=== PATIENT | female | born 1960 | race Caucasian/White ===

== ENCOUNTER 2023-08-03 21:57 | Inpatient (IN) | payer OTHER, SELFPAY ==
[2023-08-03] VITALS (16 sets, daily range): BP systolic 121–161; BP diastolic 67–99; BMI 27.5
[2023-08-03 18:46] LABS: % Basophils 0.4 % (0-2); % Eosinophils 1.7 % (0-6); % Immature Granulocytes 0.1 % (0-0.5); % Lymphocytes 27.1 % (20.5-51.1); % Monocytes 10.3 % (1.7-9.3); % Neutrophils 60.4 % (42.2-75.2); Absolute Eosinophils 0.1 10^3/uL (0-0.7); Absolute Lymphocytes 2.2 10^3/uL (1.2-3.4); Absolute Monocytes 0.8 10^3/uL (0.1-0.6); Absolute Neutrophils 4.9 10^3/uL (1.4-6.5); Hematocrit 40.5 % (37.0-47.0); Hemoglobin 14.5 g/dL (12.0-16.0); Mean Corp Hgb Conc. 35.8 g/dL (33.0-37.0); Mean Corpuscular Hgb 29.8 pg (27.0-31.0); Mean Corpuscular Volume 83.3 fL (81.0-99.0); Mean Platelet Volume 9.6 fL (7.4-10.4); Nucleated Red Blood Cells % 0 %; Platelet Count 361 10^3/uL (130-400); Red Blood Cell Count 4.86 10^6/uL (4.20-5.40); Red Cell Dist. Width 13.4 % (11.5-14.5); White Blood Cell Count 8.2 10^3/uL (4.8-10.8)
[2023-08-03 19:03] LABS: ALT (SGPT) 19 U/L (0-35); AST (SGOT) 25 U/L (14-36); Albumin 4.6 g/dl (3.5-5.0); Alkaline Phosphatase 107 U/L (38-126); Blood Urea Nitrogen 17 mg/dl (7-17); Calcium 10.5 mg/dl (8.4-10.2); Carbon Dioxide 18 mmol/L (22-30); Chloride 108 mmol/L (98-107); Estimated Creatinine Clearance 82 ml/min; Glucose 119 mg/dl (70-99); Sodium 137 mmol/L (135-145); Total Bilirubin 0.5 mg/dl (0.2-1.3); Total Protein 7.5 g/dl (6.3-8.2); eGFR > 60.00
--- NOTE | 2023-08-03 19:04 | ED.GENMED ---
History of Present Illness
General
Chief Complaint: Chest Pain
Time Seen by Provider: 08/03/23 18:56
Travel History
Have you had any contact with someone who has COVID-19?: No
Do you have any symptoms of coronavirus? Fever > 100 degrees, chills, cough, shortness of breath, sore throat, loss of taste or smell, muscle aches, or headache?: No
History of Present Illness
History of Present Illness:
HPI: 24 hours ago, the patient had diaphoresis. Around that time she had some upper discomfort. Throughout the night she continued to have some diaphoresis without any chest pain or back pain. Approximately 1 hour ago (around 6 PM), the patient
described chest discomfort and EMS was called. She currently spontaneously feels somewhat improved. She does have a history of high blood pressure. Apparently EMS was concerned for the possibility of STEMI prior to arrival.
EXAM:
GENERAL: Well appearing in no distress
HEENT: Moist oral mucosa
CARDIOVASCULAR: No murmurs, normal heart rate, regular rhythm, No chest wall tenderness
PULMONARY: No respiratory distress, breath sounds are clear and equal
ABDOMEN: Soft with no peritoneal signs, no tenderness
NEUROLOGIC: Excellent strength all extremities, no coordination deficits, she appears somewhat anxious
PSYCHIATRIC: Appropriate mental status, normal insight and judgement
EXTREMITIES: Nontender, no edema, moves all extremities equally
SKIN: No rash, no lesions
TIME OF INITIAL ENCOUNTER: 7 PM
NUMBER AND COMPLEXITY OF PROBLEMS ADDRESSED AT THE ENCOUNTER
� Chronic conditions affecting care: High blood pressure, hyperlipidemia, is a smoker
� Acute Exacerbation and/or Progression of Chronic Illness: This is an acute problem
� Differential Diagnosis includes: ACS, anxiety, GI etiology
AMOUNT AND/OR COMPLEXITY OF DATA TO BE REVIEWED AND ANALYZED
� I performed an independent evaluation of and my interpretation is:
EKG: Sinus 81, nonspecific ST abnormality, no old EKG to compare
CT:
X-rays: I see no acute abnormality on the chest x-ray
Laboratory Studies: CBC unremarkable, bicarb low at 18, otherwise chemistries relatively unremarkable, initial troponin 0.040
Other:
� Review of other/old records: No old records available for review in [facility]
� Clinical information was obtained by an independent historian: I spoke to sister at bedside
� Prescriptions/Medications Considered but not given:
� Further testing considered but not performed:
RISK OF COMPLICATIONS AND/OR MORBIDITY OR MORTALITY OF PATIENT MANAGEMENT
� Social determinants of health affecting care: Lives at home
� Discussion with other providers: I discussed case with Dr. Verduzco. He came in and evaluated patient in the ED. We did give aspirin, nitroglycerin, heparin. Hospitalist for admission
� Escalation of care including admission/observation vs risk of discharge considered: The patient's chest discomfort is improved/resolved after nitroglycerin given. Initial troponin and EKG abnormal however the repeat EKG is
unremarkable. She is currently chest pain-free.
Phy Exam
Physical Exam
Physical Exam:
See HPI
Scores
Heart Score for Chest Pain Patients
STEMI patient?: Not applicable
Course
Orders/Labs/Results
Orders:
Orders
08/03/23 18:36
Electrocardiogram (*1) Urgent
Reason for Study: Chest Pain
EKG- Treatment ONCE
08/03/23 18:41
Complete Blood Count/With Diff Urgent
Comprehensive Metabolic Panel Urgent
Troponin I Urgent
08/03/23 19:09
CR Chest - 2 Views Urgent
Comment:
Reason For Exam: cp
08/03/23 19:22
Nitroglycerin Ointment [Nitro-Bid] 1 inch TOPICAL NOW STA
08/03/23 19:29
Aspirin 325 mg PO NOW STA
Heparin 4,000 units IV NOW STA
08/03/23 19:30
Heparin 03725 Units/250 ml 25,000 units in 250 ml IV PER PROTOCOL
Weight to be used for heparin protocol in kilograms (kg):: 66
Protocol:: Cardiac Tx/Acute Coronary
PTT Goal Range to be used:: PTT 73 to 111 seconds
Order type:: Initial
INITIAL Infusion Dose (UNITS/KG/hr) & then follow protocol:: 15 units/kg/hr
Infusion Dose in UNITS/hr & then follow protocol (UNITS/hr):: 1,000
INFUSION RATE in mL/hr & then follow protocol (mL/hr):: 10
PTT less than or equal to 64 seconds:: Increase rate by 200 units/hr (+ 2 mL/hr)
PTT 64.1 to 72.9 seconds:: Increase rate by 100 units/hr (+ 1 mL/hr)
PTT 73 to 111 seconds:: Target Range. No change in rate.
PTT 111.1 to 130.9 seconds:: Decrease rate by 100 units/hr (- 1 mL/hr)
PTT 131 to 199.9 seconds:: HOLD for 1 hr. Then decrease rate by 200 units/hr (- 2 mL/hr)
PTT greater than or equal to 200 seconds:: HOLD for 2 hrs & Notify Provider. Then decrease by 200 units/hr (-
2 mL/hr)
Lab follow-up:: Each change, PTT q6h until 2 consecutive are therapeutic. Then PTT
daily.
Nursing to Place Non Medication Order As Directed
Physician Order: PTT 6 hours after initial start of Heparin infusion
08/03/23 19:47
Electrocardiogram (*1) Urgent
Reason for Study: Chest Pain
EKG- Treatment ONCE
PTT Urgent
Comment: Obtain baseline before beginning heparin infusion if not already collected
Nitroglycerin Sublingual [Nitrostat (Sublingual)] 0.4 mg SL NOW STA
08/03/23 20:15
Nitroglycerin 100 mg/250 ml [Nitroglycerin Premix] 100 mg in 250 ml IV PER PROTOCOL
Initial dose in mcg/min, then titrate:: 10
Titrate to keep:: Chest Pain Free
Titrate by mcg/min:: 5 mcg/min, may increase by 10 mcg/min if dose > 20 mcg/min
Frequency of titrations (minutes):: every 3-5 minutes
Maximum dose in mcg/min:: 200
Begin to taper infusion when:: Remained at goal for 2hrs
Taper by mcg/min:: 5 mcg/min
Frequency of taper (minutes) if patient maintains goal:: 30
Taper to off?: Yes
If infusion off & no longer maintaining goal:: Contact Provider
08/03/23 20:26
Ticagrelor [Brilinta] 180 mg PO ONCE ONE
08/03/23 20:30
Atorvastatin [Lipitor] 80 mg PO QPM
08/03/23 20:41
Admit/Transfer Patient As Directed
Co-Sign Provider:
Level of Care: Inpatient admission
Assign to:: IVU
Physician / Group: arie
Diagnosis: NSTEMI
Reason for Hospitalization: NSTEMI
Expected length of stay greater than two midnights?: Yes
ELOS- Estimated Length of Stay in days: 2
I certify the patient meets the requirements for IP care: Yes
Code Status As Directed
Resuscitation Status: Full Code
08/03/23 21:00
Troponin I Urgent
08/03/23 21:30
Troponin I Q6H
08/04/23 06:00
Lipid Profile [Cardiovascular Evaluation] IN AM
08/04/23 08:00
Nicotine [Nicoderm Transdermal] 14 mg TRANSDERM DAILY
Ticagrelor [Brilinta] 60 mg PO BID
Abnormal Lab Results
08/03/23
18:41
Absolute Monos (auto) 0.8 H 10^3/uL
(0.1-0.6)
Monocytes % 10.3 H %
(1.7-9.3)
Chloride 108 H mmol/L
(98-107)
Carbon Dioxide 18 L mmol/L
(22-30)
Glucose 119 H mg/dl
(70-99)
Calcium 10.5 H mg/dl
(8.4-10.2)
Troponin I 0.040 H* ng/ml
08/03/23 18:41
08/03/23 18:41
Vital Signs
Initial and Last Documented VS:
Initial Vital Signs
Temp Pulse Resp BP Pulse Ox
98 F 84 14 145/92 98
08/03/23 18:40 08/03/23 18:40 08/03/23 18:40 08/03/23 18:40 08/03/23 18:40
Last Documented Vital Signs
Temp Pulse Resp BP Pulse Ox
98 F 84 14 145/92 98
08/03/23 18:40 08/03/23 18:40 08/03/23 18:40 08/03/23 18:40 08/03/23 18:40
*Critical Care Note
Total Time (30-74mins, 75-104mins- exclusive of procedures): Not Applicable
ED Attending Note
-
Portions of this chart may have been created with voice recognition software.� Occasional wrong word or��sound alike� substitutions may have occurred due to the inherent limitations of voice recognition software.
Discharge Plan
Departure
Patient Disposition: Admit
Date of Disposition: 08/03/23
Time of Disposition: :
Presentation/result/management discussed w/ accepting MD/DO: Hospitalist
Patient with high blood pressure during this ER visit?: Yes
Discharge Problem:
Acute coronary syndrome
Prescriptions:
No Action
cyanocobalamin (vitamin B-12) [Vitamin B-12] 1,000 mcg Tablet
1,000 mcg PO DAILY
valsartan 80 mg tablet
80 mg PO DAILY
naproxen sodium [Aleve] 220 mg Tablet
440 mg PO HS
omeprazole 20 mg Capsule,Delayed Release(Dr/Ec)
20 mg PO HS
calcium carb-mag ox-zinc gluc 333-133-5 mg Tablet
1 tab PO HS
Referrals:
Curt Lua MD [Family Provider] -
Interventions
Interventions:
*Risk Screen - Suicide Last Done: 08/03/23 18:45
*General Assessment Last Done: 08/03/23 18:45
*Neglect/Abuse Screening Last Done: 08/03/23 18:45
ED- Fall Risk Assessment Last Done: 08/03/23 18:45
*ED COVID-19 Vaccine History Last Done: 08/03/23 18:45
ED- Cardiac Assessment Last Done: 08/03/23 18:40
Discharge Date and Time
Print Language: SAUDI ARABIAN
[2023-08-03] MEDS: ASPIRIN 325 MG PO (20:03)
[2023-08-03] MEDS: HEPARIN 4000 UNITS IV (20:04)
[2023-08-03 20:12] LABS: APTT 28.7 Sec (23.4-35.0)
--- NOTE | 2023-08-03 20:17 | CON.CAR ---
Addendum entered and electronically signed by Rojelio Verduzco MD 08/03/23 20:30:
admit to IVU
Original Note:
Consultation
Consultation Request
Date/Time Consultation Requested: 08/03/20231949
Date/Time Consultation Performed: 08/03/20231939
Requesting Provider: ER
Performing Provider: Dr. Verduzco
Reason for Consultation: Chest discomfort
Medical History
-
History of Present Illness:
63-year-old woman with a history of hypertension, hypercholesterolemia and smoking whose had some episodes of diaphoresis, upper back discomfort and chest discomfort. Symptoms started yesterday evening initially she had back discomfort and episodes
of diaphoresis lasting 10 to 30 minutes. Nothing particular made her symptoms better or worse. This morning she felt well and was not having symptoms but then later in the morning developed back discomfort with associated chest discomfort and
episodes of diaphoresis. Symptoms continue to occur intermittently throughout the day but then the severity of the symptoms increased and at one point was 10 out of 10 in intensity so EMS was called patient given nitroglycerin en route with
improvement patient still with some residual chest discomfort on arrival to the ER but currently is chest pain-free. Initial ECG showed sinus rhythm withDownsloping ST segments and mild ST depression in V2 and V3 and there was some's subtle
suggestion of ST elevation in the inferior leads. On my arrival patient was chest pain-free and repeat ECG showed sinus rhythm with resolution of the ST changes noted.
Patient with no prior history of cardiac disease.
Past medical history
Smoking
Hypertension
Hypercholesterolemia but patient was reluctant to go on medical therapy
Carpal tunnel
Osteoarthritis
Medications valsartan
Social history smokes. Family at bedside
Family history father had heart attack in his 60s father also had diabetes
Past Medical History
Past Medical History: Other (As above)
Social History
Tobacco: Smoker
Family History
Family History: CAD
Allergies / Home Medications
Allergy/AdvReac Type Severity Reaction Status Date / Time
codeine Allergy Mild Nausea / Verified 08/03/23 18:36
Vomiting
�Medication �Instructions �Recorded �Confirmed �Type
calcium carbonate 333 mg-magnesium 1 tab PO HS 08/03/23 08/03/23 History
oxide 133 mg-zinc gluc 5 mg tablet
cyanocobalamin (vitamin B-12) 1,000 mcg PO DAILY 08/03/23 08/03/23 History
1,000 mcg tablet (Vitamin B-12)
naproxen sodium 220 mg tablet 440 mg PO HS 08/03/23 08/03/23 History
(Aleve)
omeprazole 20 mg capsule,delayed 20 mg PO HS 08/03/23 08/03/23 History
release
valsartan 80 mg tablet 80 mg PO DAILY 08/03/23 08/03/23 History
Review of Systems
-
All other systems: Negative unless noted
Physical Exam
Vital Signs
Temp Pulse Resp BP Pulse Ox
98 F 84 14 145/92 98
08/03/23 18:40 08/03/23 18:40 08/03/23 18:40 08/03/23 18:40 08/03/23 18:40
Lab Results
08/03/23 18:41
08/03/23 18:41
Troponin I 0.040 ng/ml H* 08/03/23 18:41
Physical Exam
General: No Apparent Distress
HEENT: Anicteric and Other (Extraocular was intact pupils are equal external ear and oral exam unremarkable)
Respiratory: Other (Clear with no wheezes rales or rhonchi)
Cardiac: Regular Rhythm (No murmur rub or gallop)
GI: Soft, Non Tender, Non Distended, Normal Bowel Sounds and Other (No mass or hepatosplenomegaly)
Musculoskeletal: No Clubbing, No Edema and Other (2+ PT pulses bilaterally)
Skin: Warm, Dry, Rash and Other (No rash)
Neuro: Awake, Alert and Oriented
Hematologic/Lymphatic: No Lymphadenopathy
Psych: Calm
Impression / Plan
-
Chest discomfort/intermittent chest discomfort and back discomfort consistent with angina.. Patient with transient ST changes as noted above and troponin 0.4. Patient with ACS/threatened DC. Currently chest pain-free and ECG changes have
resolved. Issues reviewed with interventional cardiology.
-IV nitro
-Aspirin-325 given. Continue aspirin 81 mg a day
-Heparin IV
-IV nitro
-Brilinta
-Atorvastatin 80 mg daily
-Plan for cardiac catheterization this admission. If patient has refractory symptoms despite the above medical therapy therapy then would proceed with urgent catheterization. This has been reviewed with the interventional team.
Hypertension. Currently stable monitor.
Hypercholesterolemia. Check lipid profile. Initiate statin
Smoking. Smoking cessation recommended.
Data Reviewed
-
EKG: Tracing Personally Visualized and interpreted
Radiology: Report Reviewed by me
CT Scan: Report Reviewed by me
Medical Tests (Nuc Med, Echo etc): Report Reviewed by me
[2023-08-03] MEDS: NITROGLYCERIN PREMIX 250 IV (20:25)
--- NOTE | 2023-08-03 20:43 | HPS.HSE ---
Family Physician
-
Family Physician: Curt Lua
Chief Complaint
-
chest pain
History of Present Illness
63-year-old female past medical history of hypertension, hypercholesteremia, carpal tunnel syndrome, osteoarthritis, presenting with back/chest discomfort. Symptom started yesterday evening when she developed back discomfort and sweating lasting 10
to 30 minutes. She felt well this morning however later in the day she developed back/chest discomfort and sweating. This occurred intermittently throughout the day got worse so EMS was called. Patient was given nitroglycerin with improvement but
patient still has some residual chest discomfort. She currently denies any chest pain.
She smokes 1 pack of cigarettes a day. She denies smoking.
Father had heart attack in late 60s as well as diabetes.
Medical History
Past Medical History
Past Medical History: Reports Other ( hypertension, hypercholesteremia, carpal tunnel syndrome, osteoarthritis,)
Past Surgical History: Reports None
Social History
Tobacco: Smoker
Alcohol: None
Drug: None
Family History
Family History: Not pertinent
Allergies / Home Medications
Allergies reflects when Allergies were last updated in [employer].
Home Medications with original date entered in [employer]
Allergy/Medication List:
Allergies
Allergy/AdvReac Type Severity Reaction Status Date / Time
codeine Allergy Mild Nausea / Verified 08/03/23 18:36
Vomiting
Home Medications
calcium carbonate 333 mg-magnesium oxide 133 mg-zinc gluc 5 mg tablet 1 tab PO HS 08/03/23
cyanocobalamin (vitamin B-12) 1,000 mcg tablet (Vitamin B-12) 1,000 mcg PO DAILY 08/03/23
naproxen sodium 220 mg tablet (Aleve) 440 mg PO HS 08/03/23
omeprazole 20 mg capsule,delayed release 20 mg PO HS 08/03/23
valsartan 80 mg tablet 80 mg PO DAILY 08/03/23
Review of Systems
-
History Source: Patient
A 12 point ROS was completed and negative except as noted: Yes
Constitutional: Reports No Symptoms
EENT: Reports No Symptoms
Respiratory: Reports See HPI
Cardiac: Reports See HPI
Abdomen/GI: Reports No Symptoms
: Reports No Symptoms
Musculoskeletal: Reports No Symptoms
Skin: Reports No Symptoms
Neurological: Reports No Symptoms
Endocrine: Reports No Symptoms
Hematologic/Lymphatic: Reports No Symptoms
Psych: Reports No Symptoms
Physical Exam
Vital Signs
Vital Signs
Temp Pulse Resp BP Pulse Ox
98 F 84 14 145/92 98
08/03/23 18:40 08/03/23 18:40 08/03/23 18:40 08/03/23 18:40 08/03/23 18:40
Physical Exam
General: Well Developed, Well Nourished and No Apparent Distress
HEENT: NormoCephalic, Moist mucous membranes and Atraumatic
Respiratory: Clear
Cardiac: S1/S2 and Regular Rhythm; No Murmur or Rub
GI: Soft, Non Tender, Non Distended and Normal Bowel Sounds; No Organomegaly
Rectal: Deferred by Provider
Musculoskeletal: No Clubbing, No Cyanosis and No Edema
Skin: No Rash
Neuro: Nonfocal/grossly intact
Laboratory Results
-
08/03/23 18:41
08/03/23 18:41
Laboratory Results
APTT 28.7 Sec (23.4-35.0) 08/03/23 19:47
Total Bilirubin 0.5 mg/dl (0.2-1.3) 08/03/23 18:41
AST 25 U/L (14-36) 08/03/23 18:41
ALT 19 U/L (0-35) 08/03/23 18:41
Alkaline Phosphatase 107 U/L (38-126) 08/03/23 18:41
Troponin I 0.040 ng/ml H* 08/03/23 18:41
Data Reviewed
-
Lab Data: Labs Reviewed by me
Old Records: Reviewed
Impression/Plan
-
IMPRESSION:
PLAN:
# NSTEMI
-EKG shows nonspecific ST changes in inferior leads,
-Troponin 0.04, continue to trend
-Chest x-ray no acute process
-Aspirin given
-Brilinta given
-Heparin drip
-Nitroglycerin drip
-Statin started
-Cardiology following
-N.p.o. past midnight for potential catheterization this admission
Active smoker
-Nicotine patch
Essential hypertension
-Continue losartan
Hypercholesterolemia
Carpal tunnel syndrome
Osteoarthritis
-Hold naproxen
Full code
DVT prophylaxis�heparin drip
Regular diet, n.p.o. past midnight
[2023-08-03] MEDS: BRILINTA 180 MG PO (20:44)
[2023-08-03] MEDS: HEPARIN 25000 UNITS/250 ML IV (20:58)
[2023-08-03 21:45] LABS: Troponin I 0.056 ng/ml
--- NOTE | 2023-08-03 23:30 | PTCARENOTE ---
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
throughout the night.
[2023-08-03] MEDS: LIPITOR 80 MG PO (23:58)
[2023-08-04] VITALS (17 sets, daily range): BP systolic 98–146; BP diastolic 57–96; BMI 26.4
[2023-08-04 03:40] LABS: % Basophils 0.4 % (0-2); % Eosinophils 0.9 % (0-6); % Immature Granulocytes 0.3 % (0-0.5); % Lymphocytes 18.1 % (20.5-51.1); % Neutrophils 69.3 % (42.2-75.2); Absolute Eosinophils 0.1 10^3/uL (0-0.7); Absolute Lymphocytes 1.4 10^3/uL (1.2-3.4); Absolute Monocytes 0.8 10^3/uL (0.1-0.6); Absolute Neutrophils 5.3 10^3/uL (1.4-6.5); Hematocrit 35.4 % (37.0-47.0); Hemoglobin 12.5 g/dL (12.0-16.0); Mean Corp Hgb Conc. 35.3 g/dL (33.0-37.0); Mean Corpuscular Volume 84.9 fL (81.0-99.0); Mean Platelet Volume 9.8 fL (7.4-10.4); Nucleated Red Blood Cells % 0 %; Platelet Count 313 10^3/uL (130-400); Red Blood Cell Count 4.17 10^6/uL (4.20-5.40); Red Cell Dist. Width 13.3 % (11.5-14.5); White Blood Cell Count 7.7 10^3/uL (4.8-10.8)
[2023-08-04 03:42] LABS: INR 1.18; PT 14.8 Sec (11.4-14.6)
[2023-08-04 03:44] LABS: APTT 85.2 Sec (23.4-35.0)
[2023-08-04 04:09] LABS: Troponin I 0.467 ng/ml
[2023-08-04 04:32] LABS: ALT (SGPT) 16 U/L (0-35); AST (SGOT) 27 U/L (14-36); Albumin 3.8 g/dl (3.5-5.0); Alkaline Phosphatase 75 U/L (38-126); Blood Urea Nitrogen 15 mg/dl (7-17); Calcium 9.8 mg/dl (8.4-10.2); Carbon Dioxide 19 mmol/L (22-30); Chloride 109 mmol/L (98-107); Estimated Creatinine Clearance 82 ml/min; Glucose 102 mg/dl (70-99); HDL Cholesterol 42 mg/dl; LDL Cholesterol, Calculated 109 mg/dl; Potassium 4.2 mmol/L (3.5-5.1); Sodium 138 mmol/L (135-145); Total Bilirubin 0.8 mg/dl (0.2-1.3); Total Cholesterol 167 mg/dl (50-199); Total Protein 6.4 g/dl (6.3-8.2); Triglyceride 82 mg/dl (10-149); Very Low Density Lipoprotein 16 mg/dl (0-30); eGFR > 60.00
--- NOTE | 2023-08-04 07:00 | PTCARENOTE ---
received patient at change of shift from previous RN. pt resting in bed. AAOX3. denies chest pain, sob at this time. SR on telemetry heart rate 70s. pulses palpable. no edema. pt on nitro at 15 mcg/min and heparin at 1000 units/hr. Pt on 2L nasal
cannula, sat 99%. lung sounds clear. intermittent nonproductive cough. requesting nicotine patch. active bowel sounds. voiding in bathroom no difficulty. pt updated on plan of care. see worklist for full nursing assessment and interventions.
--- NOTE | 2023-08-04 07:53 | W.PN.HOSP.TC ---
Today's Communication/Plan
-
For cardiac cath this morning
To remain on heparin and nitroglycerin drip till then
10 statin started Brilinta given aspirin given
Assessment / Plan
Assessment / Plan
63-year-old female past medical history of hypertension, hypercholesteremia, carpal tunnel syndrome, osteoarthritis, presenting with back/chest discomfort. Symptom started yesterday evening when she developed back discomfort and sweating lasting 10
to 30 minutes. She felt well this morning however later in the day she developed back/chest discomfort and sweating. This occurred intermittently throughout the day got worse so EMS was called. Patient was given nitroglycerin with improvement but
patient still has some residual chest discomfort. She currently denies any chest pain.
She smokes 1 pack of cigarettes a day. She denies smoking.
Father had heart attack in late 60s as well as diabetes.
# NSTEMI
-EKG shows nonspecific ST changes in inferior leads,
-Troponin 0.04, continue to trend
-Chest x-ray no acute process
-Aspirin given
-Brilinta given
-Heparin drip
-Nitroglycerin drip
-Statin started/LDL on presentation 109
-Troponin trends still trend up this morning at 0.467
-Cardiology following
-N.p.o. past midnight for potential catheterization this a.m.
Active smoker
-Nicotine patch
Essential hypertension
-Continue losartan
Hypercholesterolemia
Carpal tunnel syndrome
Osteoarthritis
-Hold naproxen
Full code
DVT prophylaxis�heparin drip
Regular diet, n.p.o. past midnight
Anticipated Discharge: 24 - 48 hours
Subjective/Interval History
-
Date of Service: August 04, 2023
Patient is comfortable overnight without return of any back or neck or chest pain that she had had as outpatient anxious to proceed with catheterization having withdrawals symptoms from lack of cigarette usage and asking for her nicotine patch which
was actually ordered but unable to be given overnight.
Objective Data
-
Labs:
Laboratory Results
08/03/23 08/04/23 08/04/23
19:47 03:10 09:00
WBC 7.7
Hgb 12.5
Hct 35.4 L
Plt Count 313
PT 14.8 H
INR 1.18
APTT 28.7 85.2 H Pending
Sodium 138
Potassium 4.2
Chloride 109 H
Carbon Dioxide 19 L
BUN 15
Creatinine 0.6
Glucose 102 H
Calcium 9.8
Total Bilirubin 0.8
AST 27
ALT 16
Alkaline Phosphatase 75
Vital Signs:
Vital Signs
Temp Pulse Resp BP Pulse Ox
98.5 F 51 15 115/65 96
08/04/23 04:21 08/04/23 06:15 08/03/23 22:30 08/04/23 06:00 08/04/23 06:15
Review of Systems
-
History Source: Patient
Constitutional: Reports No Symptoms
EENT: Reports No Symptoms Reported
Respiratory: Reports No Symptoms
Cardiac: Reports Chest Pain (Mostly back pain as outpatient)
Physical Exam
-
General: Well Developed
HEENT: Normocephalic
Respiratory: Clear to Auscultation
Cardiac: Regular Rhythm
GI: Soft and Nontender
Psych: Calm
Data Reviewed
-
Total Time Spent with Patient (in minutes): 56
Labs: Labs Reviewed by me
--- NOTE | 2023-08-04 08:09 | W.PN.CD ---
Today's Communication / Plan
-
Cardiac catheterization today.
Impression / Plan
-
Impression/Plan: 63 y/o female smoker with HTN, HLD but reluctant to start medication admitted with aborted OK.
#Aborted OK
-Transient ST changes
-Troponin 0.040 --> 0.056 --> 0.467.
-Currently chest pain-free and ECG changes have resolved.
-Continue nitro gtt, heparin gtt, aspirin. Patient loaded with ticagrelor.
-Continue high dose, high potency statin.
-Cardiac catheterization today to clarify coronary anatomy.
#Hypertension
-Chronic, stable.
-Monitor.
#Hypercholesterolemia
-Chronic, stable.
-Total cholesterol = 167, LDL = 109, HDL = 42, Triglycerides = 82.
-High dose, high potency statin.
#Smoking
-Smoking cessation recommended.
Subjective/Interval History:
Admitted with aborted OK yesterday.
Chest pain free on aggressive medical management.
Physical Exam
Vital Signs/Labs
Vital Signs
Temp Pulse Resp BP Pulse Ox
36.9 C 85 15 101/60 94
08/04/23 04:21 08/04/23 07:45 08/03/23 22:30 08/04/23 07:00 08/04/23 07:59
08/02/23 08/03/23 08/04/23
11:59 11:59 11:59
Actual Weight 63.3 kg
08/04/23 03:10
08/04/23 03:10
PT 14.8 Sec (11.4-14.6) H 08/04/23 03:10
INR 1.18 08/04/23 03:10
APTT 85.2 Sec (23.4-35.0) H 08/04/23 03:10
Triglycerides 82 mg/dl (10-149) 08/04/23 03:10
LDL Cholesterol, Calc 109 mg/dl 08/04/23 03:10
VLDL Cholesterol, Calc 16 mg/dl (0-30) 08/04/23 03:10
HDL Cholesterol 42 mg/dl 08/04/23 03:10
LAB Results
08/03/23 08/03/23 08/03/23
18:41 20:57 21:30
Troponin I 0.040 H* 0.056 H* D Cancelled
08/04/23
03:10
Troponin I 0.467 H* D
Physical Exam
Constitutional: No acute distress and Comfortable
EENT: Anicteric and Moist mucous membranes
Cardiovascular: Rhythm & rate is regular, Pedal edema is absent, JVD pressure is normal, S1S2 is normal and Murmur/rub/gallop absent
Respiratory: Respiratory effort normal, Lungs clear to auscul., Wheeze Absent, Crackles Absent and Rhonchi Absent
GI: Soft, Distention absent, Flat, Non tender and Normal bowel sounds
Neuro/Psych: AO x 3
Data Reviewed
-
Date of Service: August 04, 2023
Medical Decision Making: Reviewed Test Results, Independent Historian Assessment and Test Interpretation
EKG: Tracing Personally Visualized and interpreted and Report Reviewed by me
Echo: Ordered by me
X-Ray/CT/US/MRI/NUC/PET: Image Personally Visualized and interpreted and Report Reviewed by me
Labs: Labs Reviewed by me
[2023-08-04] MEDS: NICODERM TRANSDERMAL 14 MG TRANSDERM (09:06)
[2023-08-04] MEDS: LOW STRENGTH ASPIRIN 81 MG PO (09:10)
--- NOTE | 2023-08-04 11:00 | PTCARENOTE ---
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 pt AAOX3. denies pain. right radial TR band in place, intact. sat 96% on room air. SR on telemtry heart rate 70s. EKG obtained. troponin sent. pt requesting to order lunch.
--- NOTE | 2023-08-04 11:17 | ITS.CL.ANGIO ---
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
Angioplasty
Procedure Report:
CARDIAC CATHETERIZATION REPORT
Date of Procedure: 08/04/2023
Referring: Rojelio Verduzco M.D.
INDICATION: Aborted myocardial infarction.
PROCEDURE:
1. Left heart catheterization.
2. Coronary angiography.
3. Successful PCI of the proximal RCA.
ACCESS:
6 Tongan right radial artery.
CATHETERS:
1. 5 Tongan JR4.
2. 5 Tongan JL 3.5.
3. 5 Tongan AL 1.
4. 5 Tongan ROSAMARIA.
5. 6 Tongan hockey-stick guiding catheter.
HEMODYNAMIC DATA
Weight (kg): 63.3
AO (s/d/x, mmHg): 109/55/74
LV (s/x mmHg): 112/10
LEFT VENTRICULOGRAPHY: Not performed.
CORONARY ANGIOGRAPHY
Dominance: Right.
Left Main: Normal size, bifurcating vessel. There is no coronary artery disease.
LAD: Normal size vessel giving rise to 1 significant diagonal. There is a long, 30% lesion in the proximal/mid vessel spanning the origin of the diagonal.
Ramus: Congenitally absent.
Circumflex: Normal size, nondominant vessel giving rise to 1 significant marginal. There are minor luminal irregularities throughout the circumflex vessel and a 60-70% lesion in the distal circumflex.
RCA: Normal size, dominant vessel. The origin of the vessel is anterior and upward pointing and very difficult to cannulate. Several catheters were tried, with the diagnostic ROSAMARIA catheter providing the best diagnostic visualization. There is a
90% lesion in the proximal vessel. A hockey-stick guide catheter provided the best therapeutic catheter engagement.
INTERVENTION(S)
1. Successful PCI of the 90% proximal RCA lesion (Xience Skypoint 3.0 x 38 MISAEL, postdilated with a 3.0 NC balloon) with reduction in stenosis to 0%, maintaining LAMONT-3 flow.
Narrative:
The decision was made to proceed with percutaneous coronary intervention after numerous diagnostic catheters provided suboptimal but ultimately adequate visualization of the RCA. The diagnostic catheter was removed over a wire and a 6Fr hockey-stick
guiding catheter was advanced to the aortic root and seated in the right coronary artery. Additional heparin was given and a Power Turn Flex wire was advanced into the distal RCA. A 2.0 x 12 semicompliant balloon was used to advance a 6 Tongan
guide liner as the cannulation of the right coronary artery was tenuous at best. After advancement of the guide liner into the ostial vessel, the 90% proximal RCA lesion was predilated with the 2.0 x 12 semi-compliant balloon to 12 era.
Nitroglycerin 150 mcg was given intracoronary. The semi-compliant balloon was removed and a 3.0 x 38 drug-eluting stent was advanced. The stent was deployed at 12 atmospheres. The stent balloon was removed. A 3.0 x 12 noncompliant balloon was
advanced into the stent and the stent was postdilated to 14 atmospheres in the distal and mid stent and 16 era in the proximal stent. Angiography was performed in orthogonal views, confirming good stent expansion and an excellent angiographic
result. The coronary wire was withdrawn and the guide was disengaged from the artery. The catheter was removed over a standard J-wire.
Closure Device: Vascular band.
Radiation (mGy): 502.35
DAP (cm2.Gy): 34.5910
Fluoroscopy time (minutes): 18.9
Sedation time (minutes): 73
CONCLUSIONS
1. Right dominant circulation with a 30% lesion in the proximal/mid LAD spanning the origin of the diagonal, a 60-70% lesion in the small distal circumflex, and anterior, upward facing and difficult to cannulate origin of the right coronary artery
with a 90% lesion in the proximal RCA, status post successful PCI using a hockey-stick guide and a 6 Tongan guide liner (Xience Skypoint 3.0 x 38 MISAEL, postdilated with a 3.0 NC balloon) with reduction in stenosis to 0%, maintaining LAMONT-3 flow.
2. Normal filling pressures (LVEDP = 10 mmHg at 63.3 kg).
RECOMMENDATIONS:
1. Expectant management after cardiac catheterization via right radial approach.
2. Limited weight bearing on the right wrist for one week.
3. Dual antiplatelet therapy with aspirin and ticagrelor for at least 12 months, followed by aspirin indefinitely.
4. Aggressive secondary prevention with high-dose, high potency statin.
5. Guideline directed medical therapy as hemodynamics tolerate.
6. Immediate smoking cessation.
7. Echocardiogram ordered and pending.
8. Referral to cardiac rehab.
Copy to: Rojelio Verduzco M.D., Curt Lua M.D.
Omid Waller DO, FACC, FACP
[2023-08-04 11:40] LABS: ACT-LR - POC > 397 Seconds (116-155)
[2023-08-04 12:00] LABS: Troponin I 0.492 ng/ml
[2023-08-04] MEDS: NSS 1000 IV (12:04)
[2023-08-04] MEDS: VITAMIN B-12 1000 MCG PO (12:04)
[2023-08-04] MEDS: PROTONIX 40 MG PO (12:04)
[2023-08-04] MEDS: DIOVAN 80 MG PO (12:08)
--- NOTE | 2023-08-04 15:42 | CM ---
spoke to pt in room, she is prev indep, lives with her sister, son/grandkids, nephew/great-nephews in a 2 story home with no steps to enter. she denies any dc planning needs or dme's. plan is for dc to home when medically stable.
--- NOTE | 2023-08-04 15:51 | CM ---
[facility] at [facility]- her cost is ZERO dollars- they have it in stock
[2023-08-04] MEDS: LIPITOR 80 MG PO (18:17)
[2023-08-04 19:25] LABS: Troponin I 0.585 ng/ml
[2023-08-04] MEDS: BRILINTA 90 MG PO (20:00)
[2023-08-05 02:55] VITALS: BP 158/87
[2023-08-05 03:34] LABS: Hematocrit 37.9 % (37.0-47.0); Hemoglobin 13.6 g/dL (12.0-16.0); Mean Corp Hgb Conc. 35.9 g/dL (33.0-37.0); Mean Corpuscular Hgb 30.6 pg (27.0-31.0); Mean Corpuscular Volume 85.2 fL (81.0-99.0); Mean Platelet Volume 9.7 fL (7.4-10.4); Platelet Count 302 10^3/uL (130-400); Red Blood Cell Count 4.45 10^6/uL (4.20-5.40); Red Cell Dist. Width 13.4 % (11.5-14.5)
[2023-08-05 03:54] LABS: Blood Urea Nitrogen 15 mg/dl (7-17); Calcium 9.9 mg/dl (8.4-10.2); Carbon Dioxide 17 mmol/L (22-30); Chloride 111 mmol/L (98-107); Estimated Creatinine Clearance 69 ml/min; Glucose 83 mg/dl (70-99); HDL Cholesterol 39 mg/dl; LDL Cholesterol, Calculated 88 mg/dl; Potassium 4.1 mmol/L (3.5-5.1); Sodium 138 mmol/L (135-145); Total Cholesterol 144 mg/dl (50-199); Triglyceride 89 mg/dl (10-149); Very Low Density Lipoprotein 17 mg/dl (0-30); eGFR > 60.00
[2023-08-05 04:14] VITALS: BMI 26.3
[2023-08-05 04:23] LABS: Troponin I 0.713 ng/ml
--- NOTE | 2023-08-05 07:01 | W.PN.CD ---
Today's Communication / Plan
-
Trend troponin to peak.
Discharge planning.
Impression / Plan
-
Impression/Plan: 63 y/o female smoker with HTN, HLD but reluctant to start medication admitted with aborted WI.
#Aborted WI
-Transient ST changes
-Troponin 0.040 --> 0.056 --> 0.467 --> 0.585 --> 0.713. Trend to peak.
-S/P PCI to a VERY anterior (and difficult to cannulate) proximal RCA (Xience Skypoint 3.0 x 38 MISAEL, post dilated with a 3.0 NC balloon).
-TTE shows preserved systolic function, no RWMA's.
-DAPT with ASA and ticagrelor for 12 months, followed by ASA indefinitely.
-Continue high dose, high potency statin.
#Hypertension
-Chronic. Elevated overnight.
-Monitor after reintroduction of valsartan.
#Hypercholesterolemia
-Chronic, stable.
-Total cholesterol = 167, LDL = 109, HDL = 42, Triglycerides = 82.
-Goal LDL < 55.
-High dose, high potency statin.
#Smoking
-Smoking cessation recommended.
#Dispo
-IVU status.
-Full code.
-Discharge planning.
Subjective/Interval History:
Successful PCI of the RCA yesterday.
Moderately hypertensive overnight.
DATA:
Cardiac Catheterization/PCI, 08/04/2023:
CONCLUSIONS
1. Right dominant circulation with a 30% lesion in the proximal/mid LAD spanning the origin of the diagonal, a 60-70% lesion in the small distal circumflex, and anterior, upward facing and difficult to cannulate origin of the right coronary artery
with a 90% lesion in the proximal RCA, status post successful PCI using a hockey-stick guide and a 6 Uzbek guide liner (Xience Skypoint 3.0 x 38 MISAEL, postdilated with a 3.0 NC balloon) with reduction in stenosis to 0%, maintaining LAMONT-3 flow.
2. Normal filling pressures (LVEDP = 10 mmHg at 63.3 kg).
TTE, 08/04/2023:
CONCLUSIONS
Normal left ventricular size, wall thickness and systolic function. No regional
wall motion abnormalities are seen. LV ejection fraction is 60-65% by Rivera's
method of discs. Normal diastolic function.
Normal right ventricular size and function.
Normal atria.
No significant valve abnormalities.
No evidence of pulmonary hypertension.
No prior study available for comparison.
Physical Exam
Vital Signs/Labs
Vital Signs
Temp Pulse Resp BP Pulse Ox
36.6 C 65 20 158/87 98
08/05/23 04:13 08/05/23 05:00 08/05/23 04:13 08/05/23 02:55 08/05/23 04:13
08/03/23 08/04/23 08/05/23
11:59 11:59 11:59
Actual Weight 63.3 kg 63 kg
08/05/23 03:05
08/05/23 03:05
PT 14.8 Sec (11.4-14.6) H 08/04/23 03:10
INR 1.18 08/04/23 03:10
APTT Cancelled 08/04/23 09:00
Triglycerides 89 mg/dl (10-149) 08/05/23 03:05
LDL Cholesterol, Calc 88 mg/dl 08/05/23 03:05
VLDL Cholesterol, Calc 17 mg/dl (0-30) 08/05/23 03:05
HDL Cholesterol 39 mg/dl 08/05/23 03:05
LAB Results
08/03/23 08/03/23 08/03/23
18:41 20:57 21:30
Troponin I 0.040 H* 0.056 H* D Cancelled
08/04/23 08/04/23 08/04/23
03:10 09:00 11:19
Troponin I 0.467 H* D Cancelled 0.492 H*
08/04/23 08/04/23 08/04/23
15:00 18:15 18:46
Troponin I Cancelled Cancelled 0.585 H*
08/05/23
03:07
Troponin I 0.713 H*
Physical Exam
Constitutional: No acute distress and Comfortable
EENT: Anicteric and Moist mucous membranes
Cardiovascular: Rhythm & rate is regular, Pedal edema is absent, JVD pressure is normal, S1S2 is normal and Murmur/rub/gallop absent
Respiratory: Respiratory effort normal, Lungs clear to auscul., Wheeze Absent, Crackles Absent and Rhonchi Absent
GI: Soft, Distention absent, Flat, Non tender and Normal bowel sounds
Neuro/Psych: AO x 3
Other: Cath Site (Right radial access site is C/D/I.)
Data Reviewed
-
Date of Service: August 05, 2023
Medical Decision Making: Reviewed Test Results, Independent Historian Assessment, Test Interpretation and Review of Case with other Provider
EKG: Tracing Personally Visualized and interpreted and Report Reviewed by me
Echo: Tracing Personally Visualized and interpreted and Report Reviewed by me
X-Ray/CT/US/MRI/NUC/PET: Image Personally Visualized and interpreted and Report Reviewed by me
Medical Tests (PFT, Pathology etc): Image Personally Visualized and interpreted and Report Reviewed by me
Labs: Labs Reviewed by me
Old Records: Reviewed
[2023-08-05 07:45] VITALS: BP 145/86
[2023-08-05] MEDS: LOW STRENGTH ASPIRIN 81 MG PO (07:59)
[2023-08-05] MEDS: VITAMIN B-12 1000 MCG PO (07:59)
[2023-08-05] MEDS: DIOVAN 80 MG PO (07:59)
[2023-08-05] MEDS: BRILINTA 90 MG PO (07:59)
[2023-08-05] MEDS: PROTONIX 40 MG PO (08:00)
[2023-08-05] MEDS: NICODERM TRANSDERMAL 14 MG TRANSDERM (08:00)
--- NOTE | 2023-08-05 08:00 | PTCARENOTE ---
pt received from previous RN, oriented, OOB in chair. SR on the monitor, HR 60-90s. no c/o CP or SOB. SBP 140s. palpable pulses, no edema. pt on RA, 98% POX. lungs diminished/clear. 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 pt abdomen s/n, denies n/v. diet tolerated
well. voids, BRP. R radial site c/d/i. Nicotine patch in place. PIV x2. see worklist for VS, I&O, and assessment.
[2023-08-05 10:01] LABS: Troponin I 0.597 ng/ml
[2023-08-05 12:17] VITALS: BP 122/89
--- NOTE | 2023-08-05 13:12 | W.PN.HOSP.TC ---
Today's Communication/Plan
-
Discharge home today
Assessment / Plan
Assessment / Plan
63-year-old female past medical history of hypertension, hypercholesteremia, carpal tunnel syndrome, osteoarthritis, presenting with back/chest discomfort. Symptom started yesterday evening when she developed back discomfort and sweating lasting 10
to 30 minutes. She felt well this morning however later in the day she developed back/chest discomfort and sweating. This occurred intermittently throughout the day got worse so EMS was called. Patient was given nitroglycerin with improvement but
patient still has some residual chest discomfort. She currently denies any chest pain.
She smokes 1 pack of cigarettes a day. She denies smoking.
Father had heart attack in late 60s as well as diabetes.
# NSTEMI
-EKG shows nonspecific ST changes in inferior leads,
-Troponin 0.04, continue to trend
-Chest x-ray no acute process
-Aspirin given
-Brilinta given
-Heparin drip
-Nitroglycerin drip
-Statin started/LDL on presentation 109
-Troponin trends still trend up this morning at 0.467
-Cardiology following
-N.p.o. past midnight for potential catheterization this a.m.
08/04
S/p cardiac cath with RCA stent
Continue dual antiplatelet with ASA and ticagrelor .
Okay to be discharged as per cardiology.
Active smoker
-Nicotine patch
Essential hypertension
-Continue losartan
Hypercholesterolemia
Carpal tunnel syndrome
Osteoarthritis
-Hold naproxen
Full code
DVT prophylaxis�heparin drip
Regular diet, n.p.o. past midnight
Anticipated Discharge: Today
Subjective/Interval History
-
Date of Service: August 05, 2023
Patient seen and examined at bedside, denies any chest pain or shortness of breath, no abdominal pain, no nausea, no vomiting, no diarrhea or constipation.
Status post cardiac cath and RCA stent.
Okay for cardiology to be discharged.
Objective Data
-
Labs:
Laboratory Results
08/05/23
03:05
WBC 7.0
Hgb 13.6
Hct 37.9
Plt Count 302
Sodium 138
Potassium 4.1
Chloride 111 H
Carbon Dioxide 17 L
BUN 15
Creatinine 0.7
Glucose 83
Calcium 9.9
Vital Signs:
Vital Signs
Temp Pulse Resp BP Pulse Ox
98.3 F 85 20 122/89 98
08/05/23 12:15 08/05/23 12:17 08/05/23 12:15 08/05/23 12:17 08/05/23 12:15
Physical Exam
-
General: Well Developed and No Apparent Distress
HEENT: Normocephalic, Atraumatic and Moist Mucous Membranes
Respiratory: Clear to Auscultation
Cardiac: Regular Rhythm and S1/S2; Negative Murmur, Rub or Gallop
GI: Soft, Nontender, Nondistended and Normal Bowel Sounds; Negative Organomegaly
Rectal: Deferred by Provider
Musculoskeletal: No Clubbing, No Cyanosis, No Edema and Other (Right radial artery access is clean with no sign of hematoma)
Skin: Negative Rash
Neuro: Nonfocal/Grossly Intact
--- NOTE | 2023-08-05 13:23 | W.DCSUMMARY ---
Discharge Summary
Discharge Data
Date of Admission: 08/03/23
Date of Discharge: 08/05/23
-
Pending Results: No
Hospital Course
63-year-old female past medical history of hypertension, hypercholesteremia, carpal tunnel syndrome, osteoarthritis, presenting with back/chest discomfort. Symptom started yesterday evening when she developed back discomfort and sweating lasting 10
to 30 minutes. She felt well this morning however later in the day she developed back/chest discomfort and sweating. This occurred intermittently throughout the day got worse so EMS was called. Patient was given nitroglycerin with improvement but
patient still has some residual chest discomfort. She currently denies any chest pain.
She smokes 1 pack of cigarettes a day. She denies smoking.
Father had heart attack in late 60s as well as diabetes.
# NSTEMI
-EKG shows nonspecific ST changes in inferior leads,
-Troponin 0.04, continue to trend
-Chest x-ray no acute process
-Aspirin given
-Brilinta given
-Heparin drip
-Nitroglycerin drip
-Statin started/LDL on presentation 109
-Troponin trends still trend up this morning at 0.467
-Cardiology following
-N.p.o. past midnight for potential catheterization this a.m.
08/04
S/p cardiac cath with RCA stent
Continue dual antiplatelet with ASA and ticagrelor .
Okay to be discharged as per cardiology.
Active smoker
-Nicotine patch
Essential hypertension
-Continue losartan
Hypercholesterolemia
Carpal tunnel syndrome
Osteoarthritis
-Hold naproxen
Full code
DVT prophylaxis�heparin drip
Regular diet, n.p.o. past midnight
Discharge Plan
-
Patient Disposition: Home (Routine Discharge)
Discharge Diagnosis/Procedures: Angioplasty and stent to Right Coronary artery
Diet: Low Fat, Low Cholesterol and Low Sodium
Activity: No restrictions
Driving Restrictions: No driving for 24 hours
Other Services: Cardiac Rehab
Stand Alone Forms: DC Instructions- Cath/EP Lab
Referrals:
Sheryl Cedillo NP [Specified Professional Personl] - 08/25/23 2:00 pm
Curt Lua MD [Family Provider] -
Omid Waller DO [Active] -
Prescriptions:
New
Brilinta 90 mg Tablet
90 mg PO BID Qty: 180 3RF
atorvastatin 80 mg Tablet
80 mg PO QPM Qty: 90 3RF
aspirin [Children's Aspirin] 81 mg Tablet,Chewable
81 mg PO DAILY Qty: 90 3RF
Continued
cyanocobalamin (vitamin B-12) [Vitamin B-12] 1,000 mcg Tablet
1,000 mcg PO DAILY
valsartan 80 mg tablet
80 mg PO DAILY
omeprazole 20 mg Capsule,Delayed Release(Dr/Ec)
20 mg PO HS
calcium carb-mag ox-zinc gluc 333-133-5 mg Tablet
1 tab PO HS
Discontinued
naproxen sodium [Aleve] 220 mg Tablet
440 mg PO HS
Discharge Orders:
Discharge Patient (As Directed); Ordered 08/05/23
Ordered By: Jacquelyn Vieyra
Care Plan Goals
Care Plan Goals:
Problem: Readiness for enhanced knowledge related to diagnosis and treatment plan
Goal: Understand your diagnosis and treatment plan needs, including medications if applicable.
Instructions: Know your diagnosis, underlying causes and treatment plan options, including medications if applicable. Consult with your health care team to learn about your diagnosis and treatment plan, including medications if applicable.
Discharge Date and Time
Print Language: UPPER SORBIAN
[2023-08-05 15:24] VITALS: BP 145/82
--- NOTE | 2023-08-05 15:30 | PTCARENOTE ---
Dr. Waller aware of trops. pt discharged home, discharge instructions reviewed, home meds reviewed. IV and tele dc'd. pt dressed self. pt left via wheelchair w/ all belongings.
== END 2023-08-05 15:20 | disposition home or self-care (01) | DRG 322 ==
LOC: IVU 21:57
PROVIDERS: Emergency Medicine; Internal Medicine; Internal Medicine Cardiovascular Disease; Nurse Practitioner; ADMITTING PHYSICIAN Hospitalist; ATTENDING PHYSICIAN General Practice; CONSULT PHYSICIAN Internal Medicine Cardiovascular Disease; EMERGENCY PHYSICIAN Emergency Medicine; FAMILY PHYSICIAN Internal Medicine
PROC: 027034Z Dilation of Coronary Artery, One Artery with Drug-eluting Intraluminal Device, Percutaneous Approach (ICD-10-PCS; 2023-08-04)
PROC: B2151ZZ Fluoroscopy of Left Heart using Low Osmolar Contrast (ICD-10-PCS; 2023-08-04)
PROC: 4A023N7 Measurement of Cardiac Sampling and Pressure, Left Heart, Percutaneous Approach (ICD-10-PCS; 2023-08-04)
PROC: B2111ZZ Fluoroscopy of Multiple Coronary Arteries using Low Osmolar Contrast (ICD-10-PCS; 2023-08-04)
DX: I25.119 Atherosclerotic heart disease of native coronary artery with unspecified angina pectoris (principal); I10 Essential (primary) hypertension; E78.00 Pure hypercholesterolemia, unspecified; M19.90 Unspecified osteoarthritis, unspecified site; F17.210 Nicotine dependence, cigarettes, uncomplicated; Z79.899 Other long term (current) drug therapy; Z82.49 Family history of ischemic heart disease and other diseases of the circulatory system
CPT/HCPCS: 71046; 80048; 80053; 80061; 84484; 85025; 85027; 85347; 85610; 85730; 93005; 93306; 93458; 96374; 96375; 99285; 99406; C1725; C1874; C1887; C1894; C9600; Q9967